=== PATIENT | male | born 1995 | race Caucasian/White ===

== ENCOUNTER 2018-01-03 12:37 | Emergency (ER) | payer MEDICAID ==
[~2018-01-03] VITALS: Ht 185.4 cm; Wt 111.0 kg
[2018-01-03 12:43] VITALS: BP 125/75
[2018-01-03 15:49] LABS: HEMATOCRIT 35.2 % (42.0-52.0); HEMOGLOBIN 12.3 g/dl (14.0-17.9); MEAN CORPUSCULAR HEMOGLOBIN 29.1 PG (27.0-31.0); MEAN CORPUSCULAR HGB CONC 34.9 % (33.0-36.5); MEAN CORPUSCULAR VOLUME 83.4 FL (78-98); MEAN PLATELET VOLUME 7.2 FL (7.4-10.4); PLATELET COUNT 184 X10'3 (140-440); RED BLOOD COUNT 4.23 X10'6 (4.70-6.10); RED CELL DISTRIBUTION WIDTH 12.5 % (11.5-14.5); WHITE BLOOD COUNT 7.5 X10'3 (4.5-11.0)
[2018-01-03 16:00] LABS: MICROCYTOSIS 1+; PLATELET ESTIMATE NORMAL; TOTAL CELLS COUNTED 100
[2018-01-03 16:01] LABS: ALANINE AMINOTRANSFERASE 323 U/L (12-78); ALBUMIN 3.5 G/DL (3.4-5.0); ALBUMIN/GLOBULIN RATIO 0.8 (1.1-1.5); ALKALINE PHOSPHATASE 198 IU/L (46-116); ANION GAP 6 (8-16); ASPARTATE AMINO TRANSFERASE 118 U/L (10-37); BILIRUBIN,TOTAL 0.5 MG/DL (0.1-1.0); BLOOD UREA NITROGEN 12 MG/DL (7-18); CALCIUM 9.9 MG/DL (8.5-10.1); CHLORIDE 103 MMOL/L (99-107); CREATININE 0.75 MG/DL (0.60-1.10); GLUCOSE 95 MG/DL (70-104); POTASSIUM 4.2 MMOL/L (3.5-5.1); SODIUM 137 MMOL/L (135-145); TOTAL CARBON DIOXIDE 27.6 MMOL/L (24-32); TOTAL PROTEIN 7.7 G/DL (6.4-8.2); eGFR > 90 ML/MIN
[2018-01-03] MEDS ORDERED: iohexol 300mg/ml 100ml inj. ONE (16:08)
[2018-01-03] MEDS: piperacillin/tazo 3.375gm/50ml 50 ML IV SCH ×2 (16:41→16:45)
[2018-01-03] MEDS ORDERED: CEPH500C2 PO (17:10)
[2018-01-03] MEDS ORDERED: BACDS PO (17:10)
[2018-01-03] MEDS ORDERED: ibuprofen tablet 400 MG TABLET PO ONE (18:00)
== END 2018-01-03 18:01 | disposition home or self-care (01) ==
LOC: ER 12:38
DX: H60.12 Cellulitis of left external ear (principal); R74.0 Nonspecific elevation of levels of transaminase and lactic acid dehydrogenase [LDH]; E23.0 Hypopituitarism; H54.7 Unspecified visual loss; Z85.9 Personal history of malignant neoplasm, unspecified; Z79.899 Other long term (current) drug therapy
CPT/HCPCS: 36415; 70487; 80053; 85025; 96365; 96366; 99285; J2543; J7030; Q9967; 96368